=== PATIENT | female | born 1955 | race Caucasian/White ===

== ENCOUNTER → 2016-12-09 | Outpatient (CLI) | payer OTHER ==
[~2016-12-09] MED LIST: ASPIRIN EC81 MG PO; BENADRYL25 MG PO; FLONASE 50 MCG/16 GM NOSE; FRESHKOTE15 ML OPHTH; LIPITOR40 MG PO; LOPRESSOR50 MG PO; MULTIVITAMINS1 EAC2 PO; PRED FORTE 1%5 ML OPHTH
== END | disposition disaster alternative care site (69) ==
LOC: GBCOE 08:53
DX: Z12.31 Encounter for screening mammogram for malignant neoplasm of breast (principal); Z85.3 Personal history of malignant neoplasm of breast
CPT/HCPCS: G0202

== ENCOUNTER → 2016-12-25 | Day surgery (SDC) | payer OTHER ==
[~2016-12-25] VITALS: Ht 167.6 cm; Wt 76.3 kg
== END | disposition disaster alternative care site (69) ==
LOC: GPOC 12-18 09:00 → GEND 08:28
PROC: 0DJD8ZZ Inspection of Lower Intestinal Tract, Via Natural or Artificial Opening Endoscopic (ICD-10-PCS; principal; 2016-12-25)
DX: Z12.11 Encounter for screening for malignant neoplasm of colon (principal); K57.30 Diverticulosis of large intestine without perforation or abscess without bleeding; K64.8 Other hemorrhoids; I25.10 Atherosclerotic heart disease of native coronary artery without angina pectoris; E78.5 Hyperlipidemia, unspecified; M54.5 Low back pain; E89.0 Postprocedural hypothyroidism; E66.3 Overweight; Z68.29 Body mass index [BMI] 29.0-29.9, adult; Z90.49 Acquired absence of other specified parts of digestive tract; Z85.3 Personal history of malignant neoplasm of breast; Z98.49 Cataract extraction status, unspecified eye; Z79.52 Long term (current) use of systemic steroids; Z79.899 Other long term (current) drug therapy
CPT/HCPCS: J2001; J7030